=== PATIENT | male | born 1945 | race Caucasian/White ===

== ENCOUNTER 2023-01-02 09:00 | Day surgery (SDC) | payer MEDICARE, OTHER ==
[~2023-01-02 09:00] MED LIST: Ketorolac 30 MG/ML SDV ONE; Lactated Ringers 1,000 ML IV SCH; Lidocaine 1% 10 ML MDV ONE; Lidocaine 1% 5 ML VIAL ONE; Midazolam 1 MG/ML 2 ML SDV ONE; Ondansetron 4 MG/2 ML SDV ONE; Phenylephrine 1% 10 MG/ML SDV ONE; Rocuronium 50 MG/5 ML Vial ONE; Ropivacaine 0.5% 5 MG/ML 30 ML SDV ONE; Sodium Chloride 0.9% 10 ML Syringe FLUSH PRN; Sodium Chloride 0.9% 10 ML Syringe FLUSH SCH; ceFAZolin 2 GM Vial ONE; fentaNYL 100 MCG/2 ML SDV ONE
[2023-01-02] MEDS ORDERED: Midazolam 1 MG/ML 2 ML SDV ONE (10:01)
[2023-01-02] MEDS ORDERED: fentaNYL 100 MCG/2 ML SDV ONE (10:01)
[2023-01-02] MEDS: Tranexamic Acid 1,000 MG/10 ML Vial ONE ×2 (10:01→11:16)
[2023-01-02] MEDS ORDERED: Propofol 200 MG/20 ML SDV ONE (10:01)
[2023-01-02] MEDS: Morphine 8 MG, EPINEPHrine 0.3 MG, Cefuroxime 750 MG, Ketorolac 30 MG, Sodium Chloride ... PRN ×10 (10:01→11:09)
[2023-01-02] MEDS ORDERED: Lactated Ringers 1,000 ML ONE (10:01)
[2023-01-02] MEDS ORDERED: ceFAZolin 2 GM Vial ONE (10:02)
[2023-01-02] MEDS: Vancomycin 1 GM SDV ONE ×2 (10:02→11:16)
[2023-01-02] MEDS ORDERED: Ondansetron 4 MG/2 ML SDV IVPUSH PRN (10:28)
[2023-01-02] MEDS ORDERED: fentaNYL 100 MCG/2 ML SDV IVPUSH PRN (10:28)
[2023-01-02] MEDS ORDERED: HYDROmorphone 0.5 MG/0.5 ML Syringe IVPUSH PRN (10:28)
[2023-01-02] MEDS ORDERED: Phenylephrine 1% 10 MG/ML SDV ONE (10:34)
[2023-01-02] MEDS ORDERED: Dexmedetomidine 200 MCG/2 ML SDV ONE (11:39)
[2023-01-02] MEDS ORDERED: Ropivacaine 0.5% 5 MG/ML 30 ML SDV ONE (11:39)
[2023-01-02] MEDS ORDERED: EPINEPHrine 1 MG/ML SDV ONE (11:39)
[2023-01-02] MEDS ORDERED: Acetaminophen/HYDROcodone 325-5 MG Tab PO PRN (12:18)
== END 2023-01-02 15:00 | disposition home or self-care (01) ==
LOC: JD.SDS 09:00
PROVIDERS: ATTEND Orthopaedic Surgery
DX: M17.12 Unilateral primary osteoarthritis, left knee (principal); N40.0 Benign prostatic hyperplasia without lower urinary tract symptoms; K21.9 Gastro-esophageal reflux disease without esophagitis; F32.A Depression, unspecified; F43.10 Post-traumatic stress disorder, unspecified; E66.3 Overweight; Z79.899 Other long term (current) drug therapy; Z88.0 Allergy status to penicillin; Z87.891 Personal history of nicotine dependence; Z68.27 Body mass index [BMI] 27.0-27.9, adult
CPT/HCPCS: 01402; 64447; 73560-26-LT; 73560-LT; 97110-GP; 97116-GP; 97161-GP; C1713; C1776; J0171; J0690; J0697; J1885; J2250; J2270; J2371; J2405; J2704; J2795; J3010; J3370; J3490; J7030; J7120